=== PATIENT | male | born 1945 | race Caucasian/White ===

== ENCOUNTER → 2019-05-08 | Day surgery (SDC) | payer MEDICARE, OTHER ==
[~2019-05-08] MED LIST: Phenylephrine 1% 10 MG/ML SDV IV ONE; Propofol 200 MG/20 ML SDV IV ONE; fentaNYL 100 MCG/2 ML SDV IV ONE
[2019-05-08] MEDS: Lactated Ringers 1,000 ML IV SCH (07:58)
--- NOTE | 2019-05-08 16:15 | OR ---
DATE OF OPERATION: 05/08/2019 PREOPERATIVE DIAGNOSIS: 1. ALTERED BOWEL HABITS. 2. PERIODIC HEMATOCHEZIA. 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 SURGEON: Bebeto Ley MD PROCEDURE: FULL-LENGTH COLONOSCOPY WITH SNARE POLYPECTOMY X3, BIOPSY OF RECTOSIGMOID MASS X4. ANESTHESIA: MAC. COMPLICATIONS: None. SPECIMEN: 1. Three separate villous adenomas, see report, 1 larger than a centimeter. 2. Rectosigmoid mass, circumferential at approximately 20 cm. 3. Moderate sigmoid diverticulosis. RECOMMENDATIONS: The patient just had a CT scanning of the abdomen for surveillance of his renal cell. We will get him into Oncology once the pathology returns. INDICATIONS: The patient was in for a prior physical. He has never had a prior colonoscopy, has refused it in the past. Admitted to having altered bowel habits and occasional bloody stools. He agreed to a diagnostic scope. DESCRIPTION OF PROCEDURE: The patient was prepped and draped, placed in the left lateral decubitus position. A lubricated Olympus colonoscope was inserted, and in the proximal rectal vault/rectosigmoid junction, the patient had a large circumferential mass fungating and constricting. We were able to get the scope through this and advance all the way to the cecum. The bowel prep was marginal. There were a lot of areas of stool, but we were able to see reasonably well. Certainly, smaller lesions could have been missed. Upon withdrawal in the distal ascending colon, the patient had about a 6 mm villous lesion removed with a snare and suctioned into polyp trap #1. A second smaller polyp noted at the splenic flexure also removed and suctioned into polyp trap #2. In the descending colon, the patient had about a 1.2 cm villous lesion removed in 2 separate pieces via snare and suctioned into polyp trap #3 without problem. The patient had scattered diverticula, moderate in severity throughout most of the sigmoid area without any inflammatory changes. There were no other vascular abnormality, signs of bleeding, or colitis. In the rectosigmoid junction around 20 cm, the patient had a large prior described circumferential colon mass. We did 4 biopsies of this, very hard and friable. The rest of the rectum itself appeared benign. Air was suctioned and the scope was removed without complication. CASH/SAURAV /[id number]
== END ==
LOC: CC.SDS 07:24
PROVIDERS: ATTEND Family Medicine
DX: D12.2 Benign neoplasm of ascending colon (principal); D12.7 Benign neoplasm of rectosigmoid junction; D12.3 Benign neoplasm of transverse colon; D12.4 Benign neoplasm of descending colon; I10 Essential (primary) hypertension; E11.9 Type 2 diabetes mellitus without complications; E78.00 Pure hypercholesterolemia, unspecified; C64.9 Malignant neoplasm of unspecified kidney, except renal pelvis; Z79.82 Long term (current) use of aspirin; Z79.84 Long term (current) use of oral hypoglycemic drugs; Z79.899 Other long term (current) drug therapy; Z87.891 Personal history of nicotine dependence
CPT/HCPCS: 00811; 45380; 45385; 88305; J2370; J2704; J3010; J7120